=== PATIENT | female | born 1995 | race African-American/Black ===

== ENCOUNTER 2021-12-04 16:58 | Emergency (ER) | payer OTHER, SELFPAY ==
--- NOTE | ~2021-12-04 | US_ITS ---
EXAMINATION: US OB <=14 wk fetus w TV DATE: 12/04/2021 21:25 INDICATION: . Uterine pain. TECHNIQUE: Real-time transabdominal and transvaginal obstetric ultrasound. FINDINGS: No prior studies for comparison. The uterus measures 9.7 x 5.4 x 5.9 cm. There is endometrial thickening measuring 2.2 cm. There is sm all fluid structure in the endometrium without significant decidual reaction. No pole or yolk s ac. Right ovary is normal measuring 3.9 x 2.3 x 2.5 cm. Left ovary contains a corpus luteal cyst buzz uring 6.9 x 5.6 x 6.4 cm. There is free fluid in the pelvic cul-de-sac. IMPRESSION: 1. Fluid structure in the endometrium which may represent an early gestational sac or pseudogestation al sac. If this is an intrauterine gestational sac corresponds to a 5 week 3 day gestational age. No pole or yolk sac are identified. Cannot exclude ectopic . Recommend follow-up with ser ial quantitative beta-hCG levels and ultrasound as clinically indicated. 2: Large corpus luteal cyst of the left ovary measuring 6.9 cm. Reviewed, dictated and finalized at location A. IMPRESSION: 1. Fluid structure in the endometrium which may represent an early gestational sac or pseudogestational sac. If this is an intrauterine gestational sac corres ponds to a 5 week 3 day gestational age. No pole or yolk sac are identifi ed. Cannot exclude ectopic . Recommend follow-up with serial quantitat mara beta-hCG levels and ultrasound as clinically indicated. 2: Large corpus luteal cyst of the left ovary measuring 6.9 cm.
[2021-12-04 17:16] VITALS: BP 127/78; PULSE 100; RESP 20; TEMP 36.4; O2SAT 99
[2021-12-04 17:34] LABS: Basophils Percent Auto 0.1 % (0.2-1.2); Eosinophils Percent Auto 0.3 % (0-4.4); Hematocrit 36.8 % (37.0-47.0); Hemoglobin 12.1 g/dL (12.0-15.0); Immature Granulocyte Absolute 0.02 K/mm3 (0.00-0.031); Immature Granulocyte Percent A 0.3 % (0-0.5); Lymphocytes Percent Auto 26.6 % (18.3-44.2); Mean Corpuscular HGB Conc 32.9 g/dl (32-36); Mean Corpuscular Volume 94.4 fl (80-100); Mean Platelet Volume 8.2 fl (7.4-10.4); Monocytes Absolute Auto 0.5 K/mm3 (0.1-0.6); Monocytes Percent Auto 6.3 % (2.6-8.5); Neutrophils Absolute Auto 5.3 K/mm3 (1.3-6.7); Neutrophils Percent Auto 66.4 % (45.5-73.1); Platelet Count Result 295 k/mm3 (150-375); Red Cell Distribution Width 12.4 % (11.5-14.5); White Blood Count 7.9 K/mm3 (4.5-10.0)
[2021-12-04 18:00] LABS: Beta HCG Quantitative 349.96 mIU/ML
[2021-12-04 19:10] LABS: Appearance Urine Clear (Clear); Bilirubin Urine Negative (Negative); Blood Urine Negative (Negative); Color Urine Yellow (Yellow); Glucose Urine UA Negative (Negative); Ketones Urine Negative (Negative); Leukocyte Esterase Ur Negative LEU/UL (Negative); Nitrate Urine Negative (Negative); Protein Urine Negative (Negative); Specific Grav Ur >= 1.030 (1.001-1.035); Urobilinogen Urine 0.2 mg/dL (<2.0)
[2021-12-04 19:13] LABS: Add Urine Microscopic? NO
[2021-12-04 19:23] VITALS: O2SAT 100
[2021-12-04 19:30] VITALS: O2SAT 98
[2021-12-04 19:31] VITALS: BP 111/67; O2SAT 100
--- NOTE | 2021-12-04 20:50 | PC.NURSE ---
Pt off unit to US.
--- NOTE | 2021-12-04 20:53 | ED.PREGNANCY ---
HPI - General Chief complaint: Vaginal Bleeding Stated complaint: , uterus pain Time Seen by Provider: 12/04/21 19:06 History of Present Illness HPI Narrative: 26-year-old female presenting saying that she wants a second opinion, she had gone to an outside hospital earlier today, received an ultrasound and hCG there which showed a likely ectopic, she had been offered methotrexate but refused this and came here for second opinion. She states that she was having some pelvic pain for the last 3 days, no vaginal bleeding. Related Data Allergies Allergy/AdvReac Type Severity Reaction Status Date / Time No Known Allergies Allergy Verified 12/04/21 19:07 Review of Systems Review of Systems: CONST: No fever. HEENT: No sore throat C/V: No chest pain RESP: No cough GI: Pelvic pain : No vaginal bleeding M/S: No joint pain. SKIN: No rash. NEURO: [No headache or focal numbness or weakness] PSYCH: [No depression] [facility] Past Medical History Medical History (Updated 12/04/21 @ 23:06 by Summer Vang MD) Miscarriage Exam Narrative: EXAMINATION OF ORGAN SYSTEMS/BODY AREAS: Constitutional: Vital signs per nursing GENERAL:[No acute distress, non-toxic appearing.] HEAD: Normal with no signs of head trauma. EYES: EOMI, conjunctiva normal ENT: Hearing grossly intact LUNGS: Nonlabored breathing. HEART: [Regular rate and rhythm] ABD: [Soft], [nontender to palpation] EXT: Normal range of motion SKIN: [No rashes or lesions.] NEURO: [Alert and oriented x 3. No gross focal sensory or strength deficits.] PSYCH: Normal affect Course Vital Signs Vital signs: Vital Signs Temperature 97.6 F 12/04/21 17:16 Pulse Rate 100 12/04/21 17:16 Respiratory Rate 20 12/04/21 17:16 Blood Pressure 127/78 12/04/21 17:16 Pulse Oximetry 99 12/04/21 17:16 Oxygen Delivery Room Air 12/04/21 17:16 Temperature 97.6 F 12/04/21 17:16 Pulse Rate 100 12/04/21 17:16 Respiratory Rate 20 12/04/21 17:16 Blood Pressure 111/67 12/04/21 19:31 Pulse Oximetry 100 12/04/21 19:31 Oxygen Delivery Room Air 12/04/21 17:16 MDM - OB/Uterine Contractions MDM Narrative Medical decision making narrative: 26-year-old female presenting with some mild pelvic pain for a few days, had gone to an outside hospital that diagnosed her with ectopic and gave her methotrexate which she did not take, vital signs here are normal, she is well-appearing in no distress, abdomen is soft and nontender, she denies any vaginal bleeding at this time. She would like a second opinion; TVUS here shows possible intrauterine gestational sac with corpus luteal cyst on ovary but cannot rule out ectopic. Patient advised to return for followup Hcg levels and repeat US, and strict return precautions provided. Continues to be very well-appearing here, denies any current symptoms, walking around without issues, with soft and nontender abdomen. Stable for discharge at this time. Lab Data Result diagrams: 12/04/21 17:28 Labs: Lab Results 12/04/21 12/04/21 12/04/21 Range/Units 17:28 17:28 17:28 WBC 7.9 (4.5-10.0) K/mm3 RBC 3.90 L (4.2-5.4) M/mm3 Hgb 12.1 (12.0-15.0) g/dL Hct 36.8 L (37.0-47.0) % MCV 94.4 (80-100) fl MCH 31.0 (26-34) pg MCHC 32.9 (32-36) g/dl RDW 12.4 (11.5-14.5) % Plt Count 295 (150-375) k/mm3 MPV 8.2 (7.4-10.4) fl Immature Gran % (Auto) 0.3 (0-0.5) % Neut % (Auto) 66.4 (45.5-73.1) % Lymph % (Auto) 26.6 (18.3-44.2) % [place] % (Auto) 6.3 (2.6-8.5) % Eos % (Auto) 0.3 (0-4.4) % Baso % (Auto) 0.1 L (0.2-1.2) % Lymph # (Auto) 2.10 (0.9-3.2) K/mm3 [place] # (Auto) 0.5 (0.1-0.6) K/mm3 Eos # (Auto) 0.0 (0-0.3) K/mm3 Baso # (Auto) 0.0 (0.0-0.1) K/mm3 Abs Immat Gran (auto) 0.02 (0.00-0.031) K/mm3 Absolute Neuts (auto) 5.3 (1.3-6.7) K/mm3 Absolute Nucleated RBC 0.0 (0.0-0.012) K/mm3 N
--- NOTE | 2021-12-04 22:34 | PC.NURSE ---
EDP back at bedside to update patient on plan of care.
[2021-12-04 23:09] VITALS: BP 126/83; PULSE 84; RESP 18; O2SAT 100
== END 2021-12-04 23:10 | disposition home or self-care (01) ==
PROVIDERS: Emergency Medicine; Emergency Provider Emergency Medicine; PCP Nurse Practitioner Family
DX: O26.891 Other specified pregnancy related conditions, first trimester (principal); R10.2 Pelvic and perineal pain; O34.81 Maternal care for other abnormalities of pelvic organs, first trimester; N83.12 Corpus luteum cyst of left ovary; Z3A.01 Less than 8 weeks gestation of pregnancy
CPT/HCPCS: 36415; 76801; 76817; 81003; 81025; 84702; 85025; 85461; 99284

== ENCOUNTER 2021-12-07 16:06 | Emergency (ER) | payer OTHER, SELFPAY ==
[2021-12-07 16:45] VITALS: BP 135/86; PULSE 89; RESP 15; TEMP 36.5; O2SAT 100
--- NOTE | 2021-12-07 18:37 | ED.GENADULT ---
HPI - General Adult General Chief complaint: Recheck/Abnormal Lab/Rx Stated complaint: ASKING FOR REPEAT HCG LEVELS Time Seen by Provider: 12/07/21 18:16 Source: patient and old records reviewed Mode of arrival: ambulatory Limitations: no limitations History of Present Illness HPI narrative: Patient is a 26 y/o female who presents to the ED to obtain repeat beta-hCG. Patient reports her last normal menstrual period was October 27. She had a home positive test last week, making her . She began having lower back pain and was concerned she may be developing a UTI and she was seen in [place]'s ED on Tuesday. Her beta hCG was 315 at that time. She states she was told she had an ectopic via US and they tried to give her methotrexate. Patient felt like she wanted another opinion and was seen here the same day. Beta was 350 at that time. Ultrasound was inconclusive. Did show fluid in the endometrium which could represent very early gestational sac. Patient was told to have beta repeated today. Patient denies any symptoms currently, abdominal pain, nausea, vomiting, back pain, fever, vaginal bleeding, vaginal discharge, dysuria, hematuria. Related Data Allergies Allergy/AdvReac Type Severity Reaction Status Date / Time No Known Allergies Allergy Verified 12/04/21 19:07 Review of Systems Review of Systems: CONSTITUTIONAL: Denies fever, chills, or sweats. CARDIOVASCULAR: Denies chest pain. RESPIRATORY: Denies dyspnea. GASTROINTESTINAL: Denies abdominal pain, nausea, vomiting, or diarrhea. GENITOURINARY: Denies dysuria or hematuria. MUSCULOSKELETAL: Denies back pain. All systems reviewed & are unremarkable except as noted in HPI and below PMFSH Past Medical History Medical History (Updated 12/07/21 @ 19:52 by Roseanne Ramirez PA-C) Miscarriage Surgical History Surgical History (Updated 12/07/21 @ 19:02 by Roseanne Ramirez PA-C) No pertinent past surgical history Social History Social History (Updated 12/07/21 @ 19:03 by Roseanne Ramirez PA-C) Smoking status: Never smoker Exam Narrative: GENERAL: Well appearing, well-nourished, non-toxic, in no acute distress. HEAD: Normocephalic, atraumatic. NECK: Supple. No adenopathy, no masses. RESPIRATORY: Airway patent, respirations nonlabored. Clear to auscultation bilaterally, no rales, rhonchi, wheezing. CARDIOVASCULAR: Regular rate and rhythm without murmurs, rubs, or gallops. Radial pulses 2+ and equal bilaterally. ABDOMINAL: Soft, no appreciable tenderness to palpation, nondistended, no hepatosplenomegaly. Normoactive BS. MUSCULOSKELETAL: Moves all extremities. Strength/ROM intact without gross deformities. SKIN: Warm, dry, normal color. No rashes. NEURO: A&O X3. Speech clear. Cranial nerves II-XII grossly intact. Steady gait. No ataxic movements. PSYCHIATRIC: Appropriate mood and affect. Normal interaction. Course Vital Signs Vital signs: Vital Signs Temperature 97.7 F 12/07/21 16:45 Pulse Rate 89 12/07/21 16:45 Respiratory Rate 15 12/07/21 16:45 Blood Pressure 135/86 12/07/21 16:45 Pulse Oximetry 100 12/07/21 16:45 Oxygen Delivery Room Air 12/07/21 16:45 Temperature 97.7 F 12/07/21 16:45 Pulse Rate 89 12/07/21 16:45 Respiratory Rate 15 12/07/21 16:45 Blood Pressure 135/86 12/07/21 16:45 Pulse Oximetry 100 12/07/21 16:45 Oxygen Delivery Room Air 12/07/21 16:45 Medical Decision Making [facility] Narrative Medical decision making narrative: Beta 12/04 350. Today, 1724. UA w/ signs of infection vs contamination with 2+ leuks, 4-6 WBC, many squamous cells. Patient will be started on antibiotics due to state. Urine culture sent. Patient without any abdominal pain, vaginal bleeding, back pain, fevers at this time. Vital signs stable. Well appearing. Nontoxic. She has an appointment with her [employer] tomorrow. Will forego US at this time as patient is not having any acute compla
[2021-12-07 19:33] LABS: Appearance Urine Cloudy (Clear); Bilirubin Urine Negative (Negative); Blood Urine Negative (Negative); Color Urine Yellow (Yellow); Glucose Urine UA Negative (Negative); Ketones Urine Negative (Negative); Leukocyte Esterase Ur 2+ LEU/UL (Negative); Nitrate Urine Negative (Negative); Protein Urine Trace mg/dL (Negative); Specific Grav Ur 1.025 (1.001-1.035)
[2021-12-07 19:42] LABS: Bacteria Urine Trace /hpf; Mucus Urine Rare /lpf; Squamous Epithelial Cell Urine Many /hpf (Few)
[2021-12-07 19:45] LABS: Add Urine Microscopic? YES
[2021-12-07 20:26] VITALS: BP 132/86; PULSE 86; RESP 18; O2SAT 99
== END 2021-12-07 20:27 | disposition home or self-care (01) ==
LOC: ANHED 19:12
PROVIDERS: Physician Assistant; Emergency Provider Emergency Medicine; PCP Nurse Practitioner Family
DX: O26.891 Other specified pregnancy related conditions, first trimester (principal); R82.71 Bacteriuria; Z3A.00 Weeks of gestation of pregnancy not specified
CPT/HCPCS: 36415; 81001; 84702; 99283

== ENCOUNTER → 2021-12-11 14:03 | Outpatient (CLI) | payer OTHER, SELFPAY ==
--- NOTE | ~2021-12-11 | US_ITS ---
EXAMINATION: US OB <=14 wk fetus w TV DATE: 12/11/2021 14:44 INDICATION: Amenorrhea, assess for IUP during first trimester TECHNIQUE: Real-time pelvic transabdominal and transvaginal ultrasound was performed. COMPARISON: 12/04/2021 FINDINGS: The uterus measures 8.9 x 4.8 x 5.5 cm. There is an intrauterine gestational sac. A yolk s ac is identified. There is a possible tiny pole. There is a 2.1 x 0.7 cm hypoechoic area adjace nt to the gestational sac. The gestational sac measures 9 mm which results and an estimated gestation al age of 5 weeks, 5 days +/- 4 days and an estimated date of delivery of 07/31/2022. The right ovary measures 3.1 x 1.5 x 2.1 cm. The left ovary measures 9.3 x 6.4 x 6.6 cm and contains an 8.5 cm cyst. There is normal vascular flow in the ovaries. There is no free fluid in the pelvis. IMPRESSION: 1. Intrauterine gestational sac and yolk sac with estimated gestational age of 5 weeks, 5 days +/- 4 days and an estimated date of delivery of 07/31/2022 based on mean sac diameter. 2. Subchorionic hematoma. Reviewed, dictated and finalized at location A.
== END ==
PROVIDERS: PCP Obstetrics & Gynecology; Visit Provider Obstetrics & Gynecology
DX: O46.91 Antepartum hemorrhage, unspecified, first trimester (principal); Z3A.01 Less than 8 weeks gestation of pregnancy
CPT/HCPCS: 76801; 76817